=== PATIENT | female | born 1970 | race Caucasian/White ===

== ENCOUNTER 2021-09-27 09:17 | Day surgery (SDC) | payer OTHER ==
[2021-09-26 13:04] LABS: BASOPHILS % (AUTO) 0.5 % (0.0-5.0); EOSINOPHILS % (AUTO) 1.6 % (0.0-8.0); HEMATOCRIT 41.9 % (36-48); LYMPHOCYTES % (AUTO) 41.9 % (21.0-51.0); MEAN CORPUSCULAR HEMOGLOBIN 27.2 pg (27.0-33.0); MONOCYTES % (AUTO) 8.6 % (3.0-13.0); PLATELET COUNT (AUTO) 268 K/uL (130-400); RED BLOOD CELL COUNT(AUTO) 4.93 MIL/uL (4.00-5.50); RED CELL DISTRIBUTION WIDTH 12.9 % (11.0-15.5); WHITE BLOOD COUNT (AUTO) 5.6 K/uL (4.8-10.8)
[2021-09-26 14:39] VITALS: BP 133/80
[~2021-09-27] VITALS: Ht 167.6 cm; Wt 93.3 kg
[2021-09-27] VITALS (17 sets, daily range): BP systolic 112–147; BP diastolic 60–98
[~2021-09-27 09:17] MED LIST: CELE-84 PO; DIPH1TAB PO; DULO60CA64 PO; ESOM40CA54 PO; FEXO180T94 PO; GABA-529 PO; OXCA150T27 PO; ZOLP5TAB8 PO
[2021-09-27] MEDS ORDERED: LACTATED RINGERS 1000ML 1,000 ML IV ONE (09:42)
[2021-09-27] MEDS ORDERED: CEFAZOLIN SODIUM 1 GM VIAL ONE (09:42)
[2021-09-27] MEDS ORDERED: FAMOTIDINE 20MG VIAL IV ONE (15:12)
[2021-09-27] MEDS ORDERED: GLYCOPYRROLATE 1 MG/5 ML SYRINGE ONE (15:21)
[2021-09-27] MEDS ORDERED: PROPOFOL 10 MG/ML 20ML VIAL IV ONE (15:21)
[2021-09-27] MEDS ORDERED: ROCURONIUM 10MG/1ML SYR 10 MG/ML ML ONE (15:21)
[2021-09-27] MEDS ORDERED: LIDOCAINE PF 100MG/5ML (2%) SYRINGE 5ML ONE (15:21)
[2021-09-27] MEDS ORDERED: FENTANYL CITRATE PF 50 MCG/1 ML 2ML VIAL ONE (15:22)
[2021-09-27] MEDS ORDERED: MIDAZOLAM HCL 1 MG/ML 2ML VIAL ONE (15:28)
[2021-09-27] MEDS ORDERED: ONDANSETRON 4MG INJ ONE (15:53)
[2021-09-27] MEDS ORDERED: NEOSTIGMINE 5MG/5ML SYR IV ONE (16:04)
[2021-09-27] MEDS ORDERED: HYDROMORPHONE 1 MG INJ ONE (16:33)
== END 2021-09-27 17:55 | disposition home or self-care (01) ==
LOC: DAH 09:17
PROVIDERS: ATTEND Obstetrics & Gynecology
DX: D25.1 Intramural leiomyoma of uterus (principal); R93.89 Abnormal findings on diagnostic imaging of other specified body structures; N88.2 Stricture and stenosis of cervix uteri; N84.0 Polyp of corpus uteri; K21.9 Gastro-esophageal reflux disease without esophagitis; F41.9 Anxiety disorder, unspecified; F32.A Depression, unspecified; Z79.899 Other long term (current) drug therapy
CPT/HCPCS: 36415; 58558; 84703; 85025; 86850; 86900; 86901; 87635; A4215; A4221; A4222; A4223; A4351; A4355; A4663; A6260; C9803; J0690; J1170; J2001; J2250; J2405; J2704; J2710; J3010; J3490 ×2; J7030; J7120